=== PATIENT | male | born 1960 | race Caucasian/White ===

== ENCOUNTER → 2020-12-10 | Outpatient (CLI) | payer OTHER ==
--- NOTE | 2020-12-10 14:00 | KCIC ---
EXAM: Right knee sonogram. HISTORY: Pain. TECHNIQUE: Sonographic imaging of the right knee was performed. COMPARISON: None. FINDINGS: There is no suspicious finding within the popliteal fossa at the site of concern. No William cyst, mass, or aneurysm is seen. IMPRESSION: Unremarkable sonographic imaging of the right popliteal fossa at the site of palpable con cern. Electronically signed by: Genevieve Valentine MD (12/10/2020 8:43 AM) [facility]
== END ==
LOC: KCIC US 07:50
PROVIDERS: ATTEND Nurse Practitioner Family
DX: M25.561 Pain in right knee (principal)
CPT/HCPCS: 76881